=== PATIENT | female | born 1975 | race Caucasian/White ===

== ENCOUNTER → 2021-03-19 | Outpatient (CLI) | payer OTHER ==
--- NOTE | ~2021-03-19 | P ---
[facility] [place] [address] [place] [address] PROCEDURE REPORT Name: PABLO HAMMONDS Room #: REG KAN Anna#: [id number] Admission: 03/19/21 Attend Phys: Logan Dennis Discharge: Date of : 77 Report #: [id number] THIS REPORT FOR: cc: Jaswant Morales MD,Logan Knowles MD, MD ~ cc: Jaswant Morales MD, Mark Bull MD DATE OF SERVICE: 03/19/2021 PROCEDURE PERFORMED: Upper endoscopy with biopsies. HISTORY OF PRESENT ILLNESS: The patient is a 45-year-old female with complaints of midepigastric abdominal pain that has been ongoing for approximately a year, typically occurring on a daily basis. No improvement on daily antacid therapy last year for approximately 1 month. Ultrasound of the abdomen apparently showing gallstones. Pain is more midepigastric and into the back, less in the right upper quadrant. She denies any nausea, vomiting, dysphagia. Her bowel movements have been normal. Plan is for upper endoscopy. DESCRIPTION OF PROCEDURE: The risks and benefits of the procedure were explained to the patient, those risks including but not limited to bleeding, perforation and the risk of sedation. She understood these risks and gave informed consent. Sedation was given using propofol per anesthesia. Next, using a standard Olympus upper endoscope, the scope was placed in the patient's mouth and advanced under direct vision through the esophagus, stomach and into the second portion of the duodenum. The larynx was normal in appearance. The esophagus was normal throughout. The GE junction was normal. Overall, the gastric mucosa was normal. Biopsies were obtained to rule out H. pylori. The pylorus was normal and patent. The duodenal bulb, first and second portion were all normal. Biopsies were also obtained of the duodenum to rule out celiac sprue. The scope was then withdrawn and the procedure terminated. The patient tolerated the procedure well. IMPRESSION: Normal upper endoscopy. RECOMMENDATIONS: 1. Await biopsy results. 2. If biopsies are negative, would consider possible PIPIDA scan before potential laparoscopic cholecystectomy, which has been discussed apparently. [facility] [address] [place] [address] PROCEDURE REPORT Name: PABLO HAMMONDS Room #: REG ASHERMaxim Anna#: [id number] Admission: 03/19/21 Attend Phys: Logan Dennis Discharge: Date of : 77 Report #: [id number] Thank you for allowing me to participate in her care. By: 1119 14 Logan Vega MD /nt
--- NOTE | 2021-03-22 18:06 | PATH ---
[facility] [place] [address] PATHOLOGY RPT PROCEDURE Name: CAMI HAMMONDS Room #: REG KAN Kermit.#: [id number] Admission: 03/19/21 Date of : 77 Discharge: Report #: [id number] Path Case #: [id number] [facility] Accession Number: [id number] . 01 Material submitted: . PART A: duodenum - DUODENAL BIOPSY R/O SPRUE PART B: gastrointestinal site - GASTRIC BIOPSY R/O H. PYLORI . 01 Clinical history: . EGD/EPIGASTRIC PAIN . 02 Diagnosis: A. Small bowel mucosa, duodenum, rule out sprue, endoscopic biopsy: - No diagnostic abnormalities present. - Negative for villous blunting or increase in intraepithelial lymphocytes. . B. Gastric mucosa, gastric, rule out H. pylori, endoscopic biopsy: - Mild chronic gastritis with features of reactive gastropathy. - Negative for intestinal metaplasia or atrophy. - Negative for Helicobacter pylori (properly controlled immunohistochemical stain performed). (IUV:pit; 03/22/2021) QTP 03/22/2021 1522 Local . 02 Electronically signed: . Estela Klein MD, Pathologist NPI- [id number] . 01 Gross description: . A. The specimen is received in formalin, labeled "Cami Marianne, duodenal biopsy". Received are three segments of pale champion tissue measuring 0.4 cm each in maximum dimensions. The specimen is submitted entirely in cassette A1. . B. The specimen is received in formalin, labeled "Cami Marianne, gastric biopsy". Received are three segments of pale champion tissue ranging in size from 0.2-0.6 cm in maximum dimensions. The specimen is submitted entirely in cassette B1. (CAA; 03/20/2021) QA/[facility] 03/20/2021 1742 Local . 02 Pathologist provided ICD-10: K29.50, K31.9 . 02 CPT . 875821, [id number], [id number] [address] [address] PATHOLOGY RPT PROCEDURE Name: CAMI HAMMONDS Room #: REG KAN Anna#: [id number] Admission: 03/19/21 Date of : 77 Discharge: Report #: [id number] Path Case #: [id number] Specimen Comment: A courtesy copy of this report has been sent to [phone], [phone] Specimen Comment: [id number] Specimen Comment: Report sent to / DR ROBERTSON Performed at: [address], [place], [place] [id number] MD Bruce Allan MD Phone: [phone] Performed at: [address] [id number] MD Estela Klein MD Phone: [phone]
== END | disposition home or self-care (01) ==
LOC: GI 09:56
PROVIDERS: ATTEND Specialist
DX: R10.13 Epigastric pain (principal); K29.50 Unspecified chronic gastritis without bleeding; K31.9 Disease of stomach and duodenum, unspecified
CPT/HCPCS: 62110; 62900